=== PATIENT | male | born 1985 | race Caucasian/White ===

== ENCOUNTER 2017-07-07 15:08 | Emergency (ER) | END 2017-07-07 21:25 | disposition home or self-care (01) ==

== ENCOUNTER 2017-08-14 14:22 | Day surgery (SDC) | END 2017-08-14 20:20 | disposition home or self-care (01) ==

== ENCOUNTER 2018-03-26 11:46 | Emergency (ER) | END 2018-03-26 14:21 | disposition home or self-care (01) ==